=== PATIENT | male | born 1995 | race Caucasian/White ===

== ENCOUNTER 2020-05-24 11:03 | Emergency (ER) | payer OTHER ==
[~2020-05-24] VITALS: Ht 185.4 cm; Wt 80.7 kg
--- NOTE | ~2020-05-24 | EKG ---
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
[2020-05-24 14:06] LABS: ABSOLUTE NEUTROPHILS 8.3 thou/uL (1.4-8.2); BASOPHILS 0.6 % (0.0-2.0); EOSINOPHILS 0.1 % (0.0-3.0); HEMATOCRIT 43.9 % (42.0-52.0); HEMOGLOBIN 14.4 gm/dL (14.0-18.0); LYMPHOCYTES 12.2 % (24.0-44.0); MCH 28.4 pg (26.0-34.0); MCHC 32.8 g/dL (28.0-37.0); MCV 86.7 fL (80.0-100.0); MONOCYTES 4.2 % (1.0-8.0); PLATELET COUNT 185 thou/uL (150-400); POLYS 82.9 % (36.0-66.0); RBC 5.07 mil/uL (4.50-6.00); RDW 13.8 % (10.5-14.5)
[2020-05-24 14:15] LABS: ANION GAP 9 mmol/L (7-16); BUN 16 mg/dL (7-18); CALCIUM 9.2 mg/dL (8.5-10.1); CHLORIDE 105 mmol/L (98-107); CO2 28 mmol/L (21-32); CREATININE 1.2 mg/dL (0.7-1.3); GLUCOSE 87 mg/dL (74-106); POTASSIUM 3.7 mmol/L (3.5-5.1); SODIUM 142 mmol/L (136-145)
[2020-05-24 14:26] LABS: ALBUMIN 4.3 g/dL (3.4-5.0); DIRECT BILIRUBIN 0.1 mg/dL (<0.1-0.2); SGOT 19 U/L (15-37); SGPT 28 U/L (30-65); TOTAL BILIRUBIN 0.7 mg/dL (0.2-1.0); TOTAL PROTEIN 7.3 g/dL (6.4-8.2); TROPONIN-I <0.06 ng/mL (<0.06)
[2020-05-24] MEDS ORDERED: ZOFRAN ODT4 MG PO (15:06)
[2020-05-24] MEDS ORDERED: MOBIC15 MG PO (15:06)
[2020-05-24 15:18] VITALS: BP 119/71
--- NOTE | 2020-05-25 10:54 | EKG ---
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
== END 2020-05-24 15:19 | disposition home or self-care (01) ==
LOC: ER 11:03
PROVIDERS: Emergency Medicine
DX: M94.0 Chondrocostal junction syndrome [Tietze] (principal); R11.2 Nausea with vomiting, unspecified; Z88.0 Allergy status to penicillin

== ENCOUNTER 2020-06-06 23:24 | Emergency (ER) | payer OTHER ==
[~2020-06-06] VITALS: Ht 182.9 cm; Wt 83.9 kg
[~2020-06-06 23:24] MED LIST: MOBIC15 MG PO; ZOFRAN ODT4 MG PO
[2020-06-07] MEDS ORDERED: SENNA-DOCUSATE1 EAC1 PO (00:09)
[2020-06-07] MEDS ORDERED: IBUPROFEN 800800 M1 PO (00:09)
[2020-06-07] MEDS ORDERED: BACTRIM DS TAB1 EACH PO (00:09)
[2020-06-07] MEDS ORDERED: NORCO 5-325 TA1 EAC2 PO (00:09)
[2020-06-07 00:30] VITALS: BP 127/74
== END 2020-06-07 00:32 | disposition home or self-care (01) ==
LOC: ER 23:24
DX: T63.451A Toxic effect of venom of hornets, accidental (unintentional), initial encounter (principal); Z88.0 Allergy status to penicillin; Z79.899 Other long term (current) drug therapy; Y92.89 Other specified places as the place of occurrence of the external cause

== ENCOUNTER 2021-08-10 10:42 | Inpatient (IN) | payer OTHER ==
[~2021-08-10] VITALS: Ht 185.4 cm; Wt 61.2 kg
--- NOTE | ~2021-08-10 | O ---
[facility] [place] [address] OPERATIVE REPORT Name: ABILIO WHITE Room #: 433-I ADM IN M.R.#: [id number] Admission: 08/10/21 Attend Phys: Lukasz Villalobos MD Discharge: Date of : [birth year] Report #: [id number] THIS REPORT FOR: cc: FAM - No family physician/PCP FAM - No family physician/PCP Poncho Perez MD ~ DATE OF SERVICE: 08/10/2021 PREOPERATIVE DIAGNOSIS: Acute appendicitis. POSTOPERATIVE DIAGNOSIS: Acute appendicitis. OPERATION: Laparoscopic appendectomy. SURGEON: Poncho Perez MD ANESTHESIA: General. ESTIMATED BLOOD LOSS: Minimal. SPECIMENS: Appendix. DESCRIPTION OF PROCEDURE: After informed consent was obtained, the patient was brought to the operating room and placed supine. SCDs were placed and working, preoperative antibiotics were administered, general anesthesia was induced. The abdomen was prepped and draped in usual sterile fashion. A 10-mm incision was made below the umbilicus. Fascia was incised and a trocar was placed. Pneumoperitoneum was established. Right upper quadrant and left lower quadrant 5 mm trocar was placed. The appendix was grasped and retracted anteriorly. Window was made in the mesoappendix. Mesoappendix was ligated using the SILVER corrigan load stapler. Base of the appendix was stapled off with a SILVER blue load stapler. Appendix was placed into an Endopouch and removed. The fascia was closed with a [id number] 0 Vicryl. Skin was closed with 4-0 Monocryl. Incisions were dressed with Steri-Strips. COMPLICATIONS: None. DISPOSITION: The patient was taken to recovery in a satisfactory condition. By: [id number] Poncho Perez MD /nt
[~2021-08-10 10:42] MED LIST changes: +BACTRIM DS TAB1 EACH PO; +IBUPROFEN 800800 M1 PO; +NORCO 5-325 TA1 EAC2 PO; +SENNA-DOCUSATE1 EAC1 PO
[2021-08-10 10:51] VITALS: BP 138/96
[2021-08-10 11:15] LABS: ABSOLUTE NEUTROPHILS 4.5 thou/uL (1.4-8.2); EOSINOPHILS 0.8 % (0.0-3.0); HEMATOCRIT 48.1 % (42.0-52.0); HEMOGLOBIN 15.4 gm/dL (14.0-18.0); LYMPHOCYTES 20.8 % (24.0-44.0); MCH 28.5 pg (26.0-34.0); MCHC 32.1 g/dL (28.0-37.0); MCV 88.9 fL (80.0-100.0); PLATELET COUNT 192 thou/uL (150-400); POLYS 68.4 % (36.0-66.0); RBC 5.41 mil/uL (4.50-6.00); RDW 14.9 % (10.5-14.5); WBC 6.6 thou/uL (4.0-11.0)
[2021-08-10] MEDS ORDERED: PREVACID30 MG PO (11:20)
[2021-08-10 11:28] LABS: URINE BILIRUBIN NEGATIVE (Negative); URINE BLOOD NEGATIVE (Negative); URINE CLARITY CLEAR; URINE COLOR YELLOW; URINE GLUCOSE-RANDOM* NEGATIVE (Negative); URINE KETONES NEGATIVE (Negative); URINE LEUKOCYTES-REFLEX NEGATIVE (Negative); URINE NITRITE-REFLEX NEGATIVE (Negative); URINE PROTEIN (DIPSTICK) NEGATIVE (Negative); URINE UROBILINOGEN 0.2 E.U./dl (0.2-1.0)
[2021-08-10 11:39] LABS: CALCIUM 8.6 mg/dL (8.5-10.1); CREATININE 1.2 mg/dL (0.7-1.3); POTASSIUM 4.4 mmol/L (3.5-5.1)
[2021-08-10 11:45] LABS: ALBUMIN 3.9 g/dL (3.4-5.0); TOTAL BILIRUBIN 0.3 mg/dL (0.2-1.0); TOTAL PROTEIN 7.1 g/dL (6.4-8.2)
[2021-08-10 12:19] LABS: AMP/METHAMP Negative (Negative); BARBITURATES Negative (Negative); BENZODIAZEPINES Negative (Negative); COCAINE Negative (Negative); METHADONE Negative (Negative); OPIATES Negative (Negative); PCP Negative (Negative)
[2021-08-10] MEDS ORDERED: NORCO5 PO (16:16)
[2021-08-10 18:26] VITALS: BP 122/65
[2021-08-10 20:00] VITALS: BP 122/65
--- NOTE | 2021-08-10 21:47 | NUR ---
PT IS A/O X4 AND IS UP AD TIFFANIE. ROOM AIR. VSS. AFEBRILE. C/O PAIN,AND NAUSEA. PRN PAIN MEDICATION GIVEN DIRECTED. WHILE IN THE PROCESS OF DISCHARGING PT, PT STATED HE FELT SOB AND CHEST PAIN AND PRESSURE. NOTIFIED CHARGE NURSE AND HOUSE SUPERVISER. ORDERS GIVEN TO TAKE AN EKG. NOTIFIED DOCTOR OF RESULTS. DOCTOR CANCELLED DISCHARGE ORDERS. PT DECIDED TO LEAVE HOSPITAL AMA. PAPERWORK SIGNED AND PLACED IN CHART.
--- NOTE | 2021-08-13 07:22 | EKG ---
[address] [address] ELECTROCARDIOGRAM REPORT Name: ABILIO WHITE Room #: 433-I DIS IN M.R.#: [id number] Admission: 08/10/21 Attend Phys: Lukasz Villalobos MD Discharge: 08/10/21 Date of : [birth year] Report #: [id number] [facility] Test Date: 2021-08-10 Test Time: 20:47:58 Pat Name: ABILIO WHITE Department: Room: 433 I Gender: M Marketing Summer Intern: EMANI : 1995 Requested By: Lukasz Villalobos Order Number: [id number] : Ruddy Mills Measurements Intervals [place] Rate: 60 P: 29 FL: 126 QRS: 70 QRSD: 79 T: 43 QT: 400 QTc: 400 Interpretive Statements Sinus rhythm Atrial premature complex Compared to ECG 05/24/2020 11:20:03 Atrial premature complex(es) now present ST (T wave) deviation now present Sinus arrhythmia no longer present Early repolarization no longer present Electronically Signed On 08-13-2021 7:22:11 CDT by Ruddy Mills [email or web address] <ELECTRONICALLY SIGNED> By: Ruddy Mills MD, FACC 08/13/21 0722 46 46 Ruddy Mills MD, FAC /EPI
--- NOTE | 2021-08-13 11:08 | PATH ---
[facility] [place] [address] PATHOLOGY RPT PROCEDURE Name: ABILIO WHITE Room #: 433-I [facility] IN M.R.#: [id number] Admission: 08/10/21 Date of : [birth year] Discharge: 08/10/21 Report #: [id number] Path Case #: [id number] [facility] Accession Number: [id number] . 01 Material submitted: . appendix - APPENDIX . 01 Clinical history: . LAPAROSCOPIC APPENDECTOMY APPENDICITIS . 02 Diagnosis: Appendix, appendectomy: - Mild chronic inflammation. (IUV:pit; 08/12/2021) QTP 08/12/2021 1229 Local . 02 Electronically signed: . Carey Enriquez MD, Pathologist NPI- [id number] . 01 Gross description: . Fixative: Formalin Labeled: Appendix Appendix length: 7.0 cm Appendix diameter: 0.5 cm Mesoappendix: Up to 1.3 cm Proximal margin: Stapled [place]: Light nicolas-corrigan and smooth to focally roughened Cut surface: Dilated lumen Luminal diameter: Up to 0.3 cm Perforation: None identified Lesions/abnormalities: None identified A1 Proximal margin (inked black) and distal tip, bisected A2 Mid appendix ([facility]; 08/11/2021) [facility] 08/11/2021 1054 Local . 02 Pathologist provided ICD-10: K36 . 02 CPT . 702365 Specimen Comment: A courtesy copy of this report has been sent to [phone] Specimen Comment: Report sent to / DR ALVARENGA Specimen Comment: A duplicate report has been generated due to demographic updates. Performed at: [address] [address] PATHOLOGY RPT PROCEDURE Name: ABILIO WHITE Room #: 433-I [facility] IN M.R.#: [id number] Admission: 08/10/21 Date of : [birth year] Discharge: 08/10/21 Report #: [id number] Path Case #: [id number] [address] [id number] MD Bird Klein MD Phone: [phone] Performed at: [address] [id number] MD Carey Enriquez MD Phone: [phone]
== END 2021-08-10 22:08 | disposition home or self-care (01) | DRG 343 ==
LOC: ER 10:42 → EROBS 14:11 → TBA 14:41 → 4S 18:15
PROVIDERS: Emergency Medicine; Nurse Practitioner; ADMIT Surgery; ATTEND Surgery
PROC: 0DTJ4ZZ Resection of Appendix, Percutaneous Endoscopic Approach (ICD-10-PCS; principal; 2021-08-10)
DX: K35.80 Unspecified acute appendicitis (principal); F17.210 Nicotine dependence, cigarettes, uncomplicated; F12.90 Cannabis use, unspecified, uncomplicated; Z20.822 Contact with and (suspected) exposure to COVID-19; Z88.0 Allergy status to penicillin; Z79.899 Other long term (current) drug therapy
CPT/HCPCS: 10102; 50010; 50101; 50411; 50555; 50739; 50740; 52265; 52266; 53307; 53312; 53314; 56525; 56526; 58574; 58867; 62110; 62900; 70005

== ENCOUNTER 2021-08-11 13:41 | Inpatient (IN) | payer OTHER ==
[~2021-08-11] VITALS: Ht 185.4 cm; Wt 81.6 kg
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
[~2021-08-11 13:41] MED LIST changes: +NORCO5 PO; +PREVACID30 MG PO
[2021-08-11 13:51] VITALS: BP 137/72
[2021-08-11 14:07] LABS: ABSOLUTE NEUTROPHILS 13.1 thou/uL (1.4-8.2); BASOPHILS 0.5 % (0.0-2.0); HEMATOCRIT 41.6 % (42.0-52.0); HEMOGLOBIN 13.7 gm/dL (14.0-18.0); LYMPHOCYTES 8.8 % (24.0-44.0); MCH 28.7 pg (26.0-34.0); MCHC 32.9 g/dL (28.0-37.0); MCV 87.1 fL (80.0-100.0); MONOCYTES 6.8 % (1.0-8.0); PLATELET COUNT 193 thou/uL (150-400); POLYS 83.9 % (36.0-66.0); RBC 4.78 mil/uL (4.50-6.00); RDW 14.7 % (10.5-14.5); WBC 15.6 thou/uL (4.0-11.0)
[2021-08-11 14:29] LABS: CALCIUM 8.9 mg/dL (8.5-10.1); CREATININE 1.2 mg/dL (0.7-1.3); POTASSIUM 3.7 mmol/L (3.5-5.1)
[2021-08-11 14:34] LABS: ALBUMIN 3.7 g/dL (3.4-5.0); TOTAL BILIRUBIN 0.6 mg/dL (0.2-1.0)
--- NOTE | 2021-08-11 14:49 | EKG ---
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 Director: SUZETTE : 1995 Requested By: Michael Dee Order Number: [id number] MD: Ruddy Mills Measurements Intervals [place] Rate: 116 P: 77 ME: 130 QRS: 74 QRSD: 83 T: -38 QT: 319 QTc: 444 Interpretive Statements Sinus tachycardia Borderline repolarization abnormality Compared to ECG 05/24/2020 11:20:03 Sinus arrhythmia no longer present Electronically Signed On 08-11-2021 14:48:56 CDT by Ruddy Mills [email or web address] <ELECTRONICALLY SIGNED> By: Ruddy Mills MD, [facility] 08/11/21 1448 1349 1349 Ruddy Mills MD, FACC /EPI
[2021-08-11 15:18] LABS: URINE BILIRUBIN NEGATIVE (Negative); URINE BLOOD NEGATIVE (Negative); URINE CLARITY CLEAR; URINE COLOR YELLOW; URINE GLUCOSE-RANDOM* NEGATIVE (Negative); URINE KETONES NEGATIVE (Negative); URINE LEUKOCYTES-REFLEX NEGATIVE (Negative); URINE NITRITE-REFLEX NEGATIVE (Negative); URINE PROTEIN (DIPSTICK) NEGATIVE (Negative); URINE UROBILINOGEN 0.2 E.U./dl (0.2-1.0)
[2021-08-11 17:29] VITALS: BP 122/68
[2021-08-11 17:50] VITALS: BP 117/67
--- NOTE | 2021-08-11 18:45 | NUR ---
[age] YEAR OLD MALE ADMITTED TO 2N ROOM 200. PT WAS BROUGHT TO THE ER PER [facility] DUE TO PT HAVING ABD PAIN. PT HAD APPENDECTOMY YESTERDAY, AND STATES HE IS HAVING ABD PAIN AND FEELS COLD INSIDE. PT ALERT AND ORIENTED TIMES FOUR. VSS. IVF INFUSING PER ORDER. PT C/O PAIN AND NAUSEA. TO EARLY TO GIVE ANY MEDICATIONS PER MAR. PT UP AB TIFFANIE WITH STEADY GAIT. PT DID TRY TO EAT SOME DINNER. PT GIRLFRIEND AT BEDSIDE. WILL CONTINUE TO MONITOR.
[2021-08-11 19:31] VITALS: BP 112/71
--- NOTE | 2021-08-12 03:08 | NUR ---
PT IS ALERT AND ORIENTED X4. COMPLAINS OF ABDOMEN PAIN RATES PAIN A 7. PAIN MEDS GIVEN FOR COMFORT. STATES PARTIAL RELIEF WITH MEDS. LUNGS ARE CLEAR ON ROOM AIR. ABDOMEN IS FLAT STERI STRIPS IN PLACE. PLACED AN ABD ON TOP OF ABDOMEN PT IS MESSING WITH STREI STRIPS AND SQUEEZING HIS ABDOMEN. ON ROOM AIR. CALL LIGHT WITHIIN REACH IF NEEDS ASSISTANCE PER STAFF.
[2021-08-12 03:43] VITALS: BP 118/66
[2021-08-12 07:37] VITALS: BP 108/63
[2021-08-12 11:05] VITALS: BP 128/74
--- NOTE | 2021-08-12 13:20 | NUR ---
Nutrition: Pt assessed due to high risk screen for poor intake, weight loss. Pt S/P lap appy 08/10 and released. Readmitted 08/11 for pain control, antibiotics. Pt voices unable to keep food/liquids down since surgery (2 days) and feels he has lost 5#. UBW 185#. Otherwise good nutritional status. RD provided alternative menu so pt can order diversional therapist's assistant better tolerated items and obtained sprite, jello and yogurt for pt to try. Meds include IVFs and colace. Follow for improved tolerance to PO. Consider low nutrition risk at present.
[2021-08-12 15:32] VITALS: BP 121/72
--- NOTE | 2021-08-12 17:08 | NUR ---
PATIENT LEFT AGAINST MEDICAL ADVISE. EDUCATED PATIENT ON THE IMPORTANCE OF ANTIBIOTICS FOR INFECTION. PATIENT STATED HE WAS GOING TO A DIFFERENT HOSPITAL TO OBTAIN ANTIBIOTICS. REMOVED IV AND PATIENT AND PARTNER EXITED ON FOOT TO A A WAITING RIDE.
== END 2021-08-12 17:44 | disposition left against medical advice (07) | DRG 872 ==
LOC: ER 13:41 → EROBS 15:26 → 2N 17:48
PROVIDERS: Emergency Medicine; ADMIT Surgery; ATTEND Surgery
DX: A41.9 Sepsis, unspecified organism (principal); K37 Unspecified appendicitis; Z53.29 Procedure and treatment not carried out because of patient's decision for other reasons; Z20.822 Contact with and (suspected) exposure to COVID-19; Z88.0 Allergy status to penicillin; Z23 Encounter for immunization
CPT/HCPCS: 10081